=== PATIENT | female | born 1950 | race Caucasian/White ===

== ENCOUNTER → 2019-12-02 10:12 | Outpatient (CLI) | payer MEDICARE, OTHER, SELFPAY ==
--- NOTE | 2019-12-02 | DI.RAD.S_ITS ---
PROCEDURE: FL BARIUM SWALLOW INDICATIONS: Dysphagia COMPARISON: None. FINDINGS: Function: There is mildly decreased esophageal peristalsis. Delayed esophageal clearance No elicited gastroesophageal reflux. There is normal transit of a calibrated barium tablet through the esophagus into the stomach. Morphology: Air-contrast images demonstrate normal mucosal morphology. However there is an area of short segment narrowing at the GE junction, associated with delayed esophageal clearance. On some images, there is transient beaklike appearance. Limited images of the stomach demonstrate normal appearance. IMPRESSION: Distal esophageal narrowing, with transient beaklike appearance. Finding suspicious for the possibility of early or developing achalasia. Consider further evaluation with dedicated upper endoscopy to exclude mass/neoplasm as clinically warranted. Normal passage of calibrated barium tablet is seen through this area. Dictated by: Bayron Stafford M.D. on 12/02/2019 at 14:33 Approved by: Bayron Stafford M.D. on 12/02/2019 at 14:36
== END ==
PROVIDERS: Referring Provider Internal Medicine Gastroenterology; Visit Provider Internal Medicine Gastroenterology
DX: R13.19 Other dysphagia (principal); K22.2 Esophageal obstruction
CPT/HCPCS: 74220

== ENCOUNTER → 2019-12-21 13:42 | Outpatient (CLI) | payer MEDICARE, OTHER, SELFPAY ==
[2019-12-22 08:06] LABS: COVID19 Sendout Not Detected (Not Detect)
== END ==
PROVIDERS: Visit Provider Nurse Practitioner
DX: Z01.812 Encounter for preprocedural laboratory examination (principal)
CPT/HCPCS: 87635

== ENCOUNTER → 2024-11-13 08:05 | Outpatient (CLI) | payer MEDICARE, OTHER, SELFPAY ==
--- NOTE | 2024-11-13 08:09 | DI.ECHO.S_ITS ---
[place] [facility]+ [facility] : : [address] : : [place] : : [id number] : : Phone: [phone] Echocardiogram Report + + :Name: KATARZYNA GRAY Study Date: 11/13/2024 Height: 66.5 in: :[facility] ReadingLocation: Weight: 168 lb : : Gender: Female BSA: 1.9 m2 : :: 1950 Age: 74 yrs BP: 114/67 mmHg: :Reason For Study: ADENOCARCINOMA OF GASTROESOPHAGEAL JUNCTION : :Ordering Physician: SWATI, : :ILIA ZAMUDIO Performed By: Heide Begum : :Referring: ILIA LONGORIA MD : + + Interpretation Summary Limited Echo: 1) Normal left ventricular thickness, size, wall motion, and systolic function (EF 60-65%). Left ventricular global longitudinal strain average is -21.8%. 2) Normal right ventricular size and function. 3) No prior Echo available for comparison. Procedure: Images were not obtained from all of the standard acoustic windows due to the limited scope of the study. A two-dimensional transthoracic echocardiogram with color flow Doppler was performed. The study quality was technically good. The patient was in sinus rhythm with heart rates between 73- 81 bpm during the exam. Left Ventricle: The left ventricle is normal in size and wall thickness. Left ventricular global longitudinal strain average is -21.8%. The ejection fraction is estimated to be 60-65%. Left ventricular systolic function appears normal without focal wall motion abnormalities. Right Ventricle: The right ventricle is normal in size and function. Mitral Valve: There is mild mitral annular calcification. The mitral valve leaflets appear to open well. Aortic Valve: The aortic valve is trileaflet. The aortic valve opens well. Great Vessels: The IVC is of normal diameter and collapses greater than 50% with a sniff. This suggests a low right atrial pressure of 3 mm Hg. Pericardium/ Pleura There is no pericardial effusion. There is no pleural effusion. MMode/2D Measurements & Calculations LVIDd: 4.8 cm IVC diam: 2.0 cm LVIDs: 2.9 cm FS: 38.8 % EPSS: 1.1 cm IVSd: 0.87 cm LVPWd: 0.88 cm LV crawley. diameter/BSA (cm/m^2): 2.6 LV sys. diameter/BSA (cm/m^2): 1.6 Reading Physician:11:01 AM
== END ==
PROVIDERS: Referring Provider Internal Medicine Medical Oncology; Visit Provider Internal Medicine Medical Oncology
DX: C16.0 Malignant neoplasm of cardia (principal)
CPT/HCPCS: 93307